=== PATIENT | male | born 1955 | race Caucasian/White ===

== ENCOUNTER → 2022-06-03 | Outpatient (CLI) | payer BC ==
[~2022-06-03] MED LIST: CIPRO 500MG TA500 MG PO; NO HOME MEDICATIONS
[2022-06-03 13:32] LABS: BASO # 0.1 K/mm3 (0.0-0.2); BASO % 0.7 % (0.0-2.0); EOS # 0.2 K/mm3 (0.0-0.7); EOS % 1.7 % (0.0-4.0); GRAN # 7.2 K/mm3 (1.4-6.5); GRAN % 66.6 % (42.2-75.2); HEMATOCRIT 43.2 % (42.0-52.0); HEMOGLOBIN 14.7 g/dl (13.5-18.0); LYMPH # 2.3 K/mm3 (1.2-3.4); LYMPH % 21.2 % (20.0-51.0); MEAN CELL VOLUME 92 fl (80.0-100.0); MEAN CORPUSCULAR HEMOGLOBIN 31 pg (27-31); MEAN CORPUSCULAR HGB CONC 34 g/dl (33.0-37.0); MEAN PLATELET VOLUME 11.4 fl (7.4-10.4); MONO % 9.4 % (1.7-9.3); PLATELET COUNT 174 K/mm3 (130-400); RED BLOOD COUNT 4.68 M/mm3 (4.20-5.60); REDCELL DISTRIBUTION WIDTH-CV 13.6 % (11.5-14.5)
[2022-06-03 13:46] LABS: C-REACTIVE PROTEIN 0.88 mg/dL (0.00-0.50); URIC ACID 8.4 mg/dL (3.5-7.2)
[2022-06-03 14:00] LABS: ERYTHROCYTE SEDIMENTATION RATE 12 mm/hr (0-30)
== END ==
LOC: COL.LAB 12:24
PROVIDERS: Family Medicine
DX: M77.32 Calcaneal spur, left foot (principal)

== ENCOUNTER → 2023-09-02 | Outpatient (CLI) | payer BC | LOC: COL.RAD 07:34 | DX: I74.3 Embolism and thrombosis of arteries of the lower extremities (principal) ==